=== PATIENT | male | born 1945 | race Caucasian/White ===

== ENCOUNTER 2016-08-31 08:07 | Day surgery (SDC) | payer BC, OTHER ==
[~2016-08-31] VITALS: Ht 185.4 cm; Wt 104.3 kg
[~2016-08-31 08:07] MED LIST: CEFAZOLIN SOD 1 GM in D5W 50 ML IV ONE
[2016-08-31] MEDS ORDERED: MORPHINE 4 MG/ML INJ. SYRINGE IVP PRN ×3 (15:00)
[2016-08-31] MEDS ORDERED: METOCLOPRAMIDE HCL 10 MG/2 ML VIAL IVP PRN (15:00)
[2016-08-31] MEDS ORDERED: D5/0.45 NS 1,000 ML IV SCH (15:07)
[2016-08-31] MEDS ORDERED: HYDROcodone/ACETAMIN 5-325 MG TAB (NORCO/ VICODIN) PO PRN ×2 (15:15)
[2016-08-31] MEDS ORDERED: HYDROmorphone 1 MG INJ. 1 MG/ML AMPUL IVP PRN (15:15)
[2016-08-31] MEDS ORDERED: SUGAMMADEX SODIUM 200 MG/2 ML VIAL IV ONE (16:00)
[2016-08-31] MEDS ORDERED: MIDAZOLAM HCL 5 MG/5 ML VIAL ONE (16:00)
[2016-08-31] MEDS ORDERED: CEFAZOLIN 1 GM IVPB PREMIX 50 ML IV ONE (16:00)
[2016-08-31] MEDS ORDERED: SEVOFLURANE 15 MIN GAS INH ONE (16:00)
[2016-08-31] MEDS ORDERED: ONDANSETRON HCL 4 MG/2 ML VIAL ONE (16:00)
[2016-08-31] MEDS ORDERED: NS IRRIG SOLN 1000 ML IR ONE (16:00)
[2016-08-31] MEDS ORDERED: ROCURONIUM BROMIDE 10 MG/ML (ZEMURON) ONE (16:00)
[2016-08-31] MEDS ORDERED: PROPOFOL 200MG/ 20ML VIAL (DIPRIVAN) IV ONE (16:00)
[2016-08-31] MEDS ORDERED: BUPIVACAINE /PF 0.25% 30 ML VIAL INJ ONE (16:00)
[2016-08-31] MEDS ORDERED: fentaNYL CITRATE 250 MCG/5 ML AMP ONE (16:00)
[2016-08-31 16:28] VITALS: BP_SYST 143
== END 2016-08-31 16:20 | disposition home or self-care (01) ==
LOC: SDS 08:07 → SMU 08:08 → SDS 16:20
PROVIDERS: ATTEND Colon & Rectal Surgery
DX: R22.2 Localized swelling, mass and lump, trunk (principal); I10 Essential (primary) hypertension; J44.9 Chronic obstructive pulmonary disease, unspecified; E78.1 Pure hyperglyceridemia; D37.01 Neoplasm of uncertain behavior of lip; M88.9 Osteitis deformans of unspecified bone; G62.9 Polyneuropathy, unspecified; Z98.890 Other specified postprocedural states; F17.200 Nicotine dependence, unspecified, uncomplicated
CPT/HCPCS: 82962; 88304; 88305; C9399; J0690; J2250; J2405; J2704; J3010; J3490; J7060; J7120